=== PATIENT | female | born 1970 | race Caucasian/White ===

== ENCOUNTER 2020-03-29 02:23 | Emergency (ER) | payer MEDICAID ==
[~2020-03-29] VITALS: Ht 154.9 cm; Wt 70.3 kg
[2020-03-29 02:27] VITALS: BP 179/99
--- NOTE | 2020-03-29 02:37 | NUR ---
PT AMBULATED TO BED 08 WITH STEADY GAIT.
--- NOTE | 2020-03-29 02:39 | NUR ---
Dr. Viramontes examining patient.
[2020-03-29] MEDS ORDERED: KETOROLAC 30 MG/ML VIAL IM ONE (02:45)
--- NOTE | 2020-03-29 02:49 | NUR ---
PT IS HAVING HEAD, NECK, SHOULDER, BACK, AND RIGHT ARM PAIN X 2 DAYS. DENIES INJURY. RATES PAIN 9/10. PT ABLE TO AMBLUATE WITH STEADY GAIT, EQUAL AND STRONG HAND TRUCK [employer] AND FOOT PUSHES. NO ASYMETRY TO FACE. DENIES SOB, AFEBRILE. BED IN LOWEST POSITION AND SIDERAIL UP X 1. ALLERGIES - NORCO HX - CAV, DM, HTN, HLD
[2020-03-29 03:26] VITALS: BP 162/84
== END 2020-03-29 03:26 | disposition home or self-care (01) ==
LOC: MED 02:23
DX: S46.811A Strain of other muscles, fascia and tendons at shoulder and upper arm level, right arm, initial encounter (principal); R51 Headache; M54.2 Cervicalgia; Z88.5 Allergy status to narcotic agent; Z88.6 Allergy status to analgesic agent; X58.XXXA Exposure to other specified factors, initial encounter; Y93.89 Activity, other specified; Y92.89 Other specified places as the place of occurrence of the external cause; Y99.8 Other external cause status
CPT/HCPCS: 96372; 99283; J1885

== ENCOUNTER 2022-02-04 11:42 | Emergency (ER) | payer MEDICAID ==
[~2022-02-04] VITALS: Ht 157.5 cm; Wt 71.2 kg
[2022-02-04 11:52] VITALS: BP 144/72
--- NOTE | 2022-02-04 12:00 | NUR ---
PT AMBULATED TO ER BED 4
--- NOTE | 2022-02-04 12:13 | NUR ---
PATIENT PRESENTS TO ED, PATIENT STATES THAT SHE DRANK WATER AND CHOKED ON THE WATER CAUSING DIFFICULTY BREATHING AND THROAT PAIN. DENIES N/V/D; SKIN IS PINK/WARM/DRY; AAOX4 WITH EVEN AND STEADY GAIT; LUNGS CLEAR BL; HR EVEN AND REGULAR; PT DENIES ANY FEVER, CP, SOB, OR COUGH AT THIS TIME; PATIENT STATES PAIN OF 4/10 AT THIS TIME; VSS; PATIENT POSITIONED FOR COMFORT; HOB ELEVATED; BEDRAILS UP X2; BED DOWN. ER MD MADE AWARE OF PT STATUS.
[2022-02-04] MEDS ORDERED: DICYCLOMINE HCL LIQUID 20 MG, ALUMINUM HYD/MAG/SIMETHICONE 30 ML, LIDOCAINE VISCOUS 2% ... PO ONE ×3 (12:20)
[2022-02-04] MEDS ORDERED: DICYCLOMINE HCL LIQUID 10 MG/5 ML UDC ONE (12:28)
[2022-02-04] MEDS ORDERED: ALUMINUM HYD/MAG/SIMETHICONE 30 ML UDC ONE (12:28)
[2022-02-04] MEDS ORDERED: ONDA-188 PO (13:28)
[2022-02-04] MEDS ORDERED: FAMO-90 PO (13:28)
--- NOTE | 2022-02-04 13:34 | NUR ---
Patient discharged with v/s stable. Written and verbal after care instructions ABOUT CHOKING given and explained. Patient alert, oriented and verbalized understanding of instructions. Ambulatory with steady gait. All questions addressed prior to discharge. ID band removed. Patient advised to follow up with PMD. Rx of PEPCID AND ZOFRAN given. Patient educated on indication of medication including possible reaction and side effects. Opportunity to ask questions provided and answered. EVEN AND UNLABORED RESPIRATIONS NOTED, NO SIGNS OF RESP DISTRESS. SPEAKING IN FULL SENTENCES.
== END 2022-02-04 13:34 | disposition home or self-care (01) ==
LOC: MED 11:42
DX: R09.89 Other specified symptoms and signs involving the circulatory and respiratory systems (principal); I10 Essential (primary) hypertension; E11.9 Type 2 diabetes mellitus without complications; Z79.4 Long term (current) use of insulin; Z79.899 Other long term (current) drug therapy; Z86.73 Personal history of transient ischemic attack (TIA), and cerebral infarction without residual deficits; Z88.6 Allergy status to analgesic agent; Z79.891 Long term (current) use of opiate analgesic; Z88.5 Allergy status to narcotic agent
CPT/HCPCS: 71045; 99283; Q0092

== ENCOUNTER 2022-07-09 14:51 | Emergency (ER) | payer MEDICAID ==
[~2022-07-09] VITALS: Ht 154.9 cm; Wt 69.4 kg
[~2022-07-09 14:51] MED LIST: FAMO-90 PO; ONDA-188 PO
[2022-07-09 15:03] VITALS: BP 150/92
[2022-07-09] MEDS ORDERED: IBUPROFEN 600 MG TAB PO ONE (15:30)
--- NOTE | 2022-07-09 15:52 | NUR ---
51/F PRESENTS TO ED WITH C/O BILATERAL KNEE PAIN AND RIGHT WRIST PAIN S/P TRIP AND FALL AT THE MARKET TODAY. DENIES HEAD/NECK INJURY OR LOC, NO OBVIOUS SIGNS OF DEFORMITY OR BRUSING NOTED.
[2022-07-09] MEDS ORDERED: IBUP-2213 PO (16:05)
[2022-07-09 16:15] VITALS: BP 136/99
--- NOTE | 2022-07-09 16:16 | NUR ---
Patient discharged with v/s stable. Written and verbal after care instructions CONTUSION given and explained. Patient alert, oriented and verbalized understanding of instructions. Ambulatory with steady gait. All questions addressed prior to discharge. ID band removed. Patient advised to follow up with PMD. Rx of IBUPROFEN given. Patient educated on indication of medication including possible reaction and side effects. Opportunity to ask questions provided and answered.
== END 2022-07-09 16:16 | disposition home or self-care (01) ==
LOC: MED 14:51
DX: S50.01XA Contusion of right elbow, initial encounter (principal); S80.01XA Contusion of right knee, initial encounter; M25.562 Pain in left knee; E11.9 Type 2 diabetes mellitus without complications; I10 Essential (primary) hypertension; Z86.73 Personal history of transient ischemic attack (TIA), and cerebral infarction without residual deficits; Z79.899 Other long term (current) drug therapy; Z88.5 Allergy status to narcotic agent; Z88.6 Allergy status to analgesic agent; W01.0XXA Fall on same level from slipping, tripping and stumbling without subsequent striking against object, initial encounter; Y93.01 Activity, walking, marching and hiking; Y92.512 Supermarket, store or market as the place of occurrence of the external cause; Y99.8 Other external cause status
CPT/HCPCS: 73080; 73562; 99284